=== PATIENT | female | born 1960 | race Caucasian/White ===

== ENCOUNTER 2016-10-29 23:21 | Emergency (ER) | payer OTHER ==
[2016-10-29 21:53] LABS: BASOPHILS 0.2 %; BASOPHILS ABSOLUTE 0.01 10/3/uL (0.0-0.16); EOSINOPHILS 1.6 %; ER CBC TAT 0 Hrs 16 Mins; HEMATOCRIT 37.2 % (36.0-48.0); HEMOGLOBIN 12.5 g/dL (12.0-16.0); IMMATURE GRANULOCYTES 0.2 %; IMMATURE GRANULOCYTES ABSOLUTE 0.01 10/3/uL (0.0-0.11); LYMPHOCYTES 27.6 %; LYMPHOCYTES ABSOLUTE 1.68 10/3/uL (0.67-4.30); MANUAL DIFF NO %; MEAN CORPUS HGB CONC 33.6 g/dL (32.0-36.0); MEAN CORPUSCULAR VOLUME 104.2 fL (80-100); MEAN PLATELET VOLUME 9.5 fL (9.2-13.0); MONOCYTES ABSOLUTE 0.61 10/3/uL (0.21-1.20); NEUTROPHILS 60.4 %; NEUTROPHILS ABSOLUTE 3.67 10/3/uL (2.02-8.40); PLATELET COUNT 188 10/3/uL (150-400); RBC DISTRIBUTION WIDTH 17.2 % (12.0-16.0); RED CELL COUNT 3.57 10/6/uL (4.0-5.6); WHITE BLOOD CELLS 6.1 10/3/uL (4.5-10.5)
[2016-10-29 21:56] LABS: INTERNATIONAL NORMAL RATI 1.8 UNITS (-)
[2016-10-29 22:00] LABS: PROTIME (NOT ORD) 20.6 SEC (12.0-14.5)
[2016-10-29 22:07] LABS: CALCIUM, SERUM 9.2 MG/DL (8.5-10.4); CHEST PAIN PROFILE TAT 0 Hrs 30 Mins; CHLORIDE, SERUM 102 MMOL/L (96-112); CO2 (CARBON DIOXIDE) 31 MMOL/L (24-34); POTASSIUM, SERUM 4.8 MMOL/L (3.5-5.3); SODIUM, SERUM 143 MMOL/L (135-148); TROPONIN I <0.02 NG/ML (<0.05)
[2016-10-29 22:08] LABS: BUN (BLOOD UREA NITROGEN) 19 MG/DL (6-23); CREATININE 1.44 MG/DL (0.55-1.02); GFR AFRICAN AMERICAN 47 ML/MIN (>=60); GFR NON AFRICAN AMERICAN 40 ML/MIN (>=60); GLUCOSE, SERUM 80 MG/DL (60-99)
[~2016-10-29 23:21] MED LIST: ASAB PO; AVAP150 PO; C1 PO; C2 PO; COUMADIN4 MG PO; FLEXERIL5 MG PO; ISOSORB DIN30 MG PO; LAN125 PO; LEVOTHYROXIN25 MCG PO; LOVENOX1C SC; LOVENOX80 SC; PCET PO; PRAVACHOL40 MG PO; PROVHFA INH; VENTOLIN HFA INH; VITC500 PO
[2016-10-29 23:51] LABS: BE (BASE EXCESS) 2.8 MEQ/L (0 +/- 2.5); CARBOXYHEMOGLOBIN 1.3 % (0-3); HCO3 (ACTUAL BICARBONATE) 27.2 MEQ/L (23-27); HEMOBLOGIN CONTENT 12.6 G/DL (12-16); INSTRUMENT SERIAL # 8087; METHEMOGLOBIN 0.2 % (0-3); O2 CONTENT 16.4 VOL% (18-24); PCO2 (CO2 TENSION) 41 MMHG (35-45); PO2 (O2 TENSION) 69 MMHG (79-93); SAMPLE Arterial; pH 7.44 (7.37-7.43)
[2016-10-30] MEDS ORDERED: FISH-EPA1000 MG PO (00:47)
[2016-10-30] MEDS ORDERED: PRAVACHOL40 MG PO (00:48)
[2016-10-30] MEDS ORDERED: DIABETA5 PO (00:48)
[2016-10-30] MEDS ORDERED: VITAMIN D31000 UNIT PO (00:48)
[2016-10-30] MEDS ORDERED: COUMADIN3 MG PO (00:49)
[2016-10-30] MEDS ORDERED: COUMADIN4 MG PO (00:49)
[2016-10-30] MEDS ORDERED: AVAPRO300 MG PO (00:49)
[2016-10-30] MEDS ORDERED: ZYRTEC ALLGY10 MG PO (00:50)
[2016-10-30] MEDS ORDERED: GLUCPH PO (00:50)
[2016-10-30] MEDS ORDERED: SYN1 PO (00:50)
[2016-10-30] MEDS ORDERED: PROAIR HFA INH (00:53)
[2016-10-30 01:51] LABS: ALLENS TEST Pos; BE (BASE EXCESS) -1.6 MEQ/L (0 +/- 2.5); CARBOXYHEMOGLOBIN 1.2 % (0-3); HCO3 (ACTUAL BICARBONATE) 21.7 MEQ/L (23-27); HEMOBLOGIN CONTENT 12.9 G/DL (12-16); INSTRUMENT SERIAL # 8087; METHEMOGLOBIN 0.1 % (0-3); O2 CONTENT 16.8 VOL% (18-24); PCO2 (CO2 TENSION) 32 MMHG (35-45); PO2 (O2 TENSION) 73 MMHG (79-93); SAMPLE Arterial; pH 7.45 (7.37-7.43)
== END 2016-10-30 03:11 | disposition home or self-care (01) ==
LOC: ER 23:21
PROVIDERS: Emergency Medicine; Nurse Practitioner Acute Care
DX: J44.1 Chronic obstructive pulmonary disease with (acute) exacerbation (principal); R91.1 Solitary pulmonary nodule; I10 Essential (primary) hypertension; Z95.1 Presence of aortocoronary bypass graft; Z87.891 Personal history of nicotine dependence; Z90.710 Acquired absence of both cervix and uterus; Z85.118 Personal history of other malignant neoplasm of bronchus and lung; Z88.5 Allergy status to narcotic agent; Z88.1 Allergy status to other antibiotic agents; Z79.01 Long term (current) use of anticoagulants; Z79.899 Other long term (current) drug therapy
CPT/HCPCS: 36600; 71020; 71275; 80048; 82805; 83735; 83880; 84484; 85025; 85610; 85730; 93005; 94640; 99285; Q9967